=== PATIENT | male | born 1955 | race Caucasian/White ===

== ENCOUNTER 2019-01-19 07:22 | Outpatient (CLI) | payer OTHER | END 2019-01-19 19:52 | disposition home or self-care (01) | LOC: NUCLEAR 07:22 | DX: I20.9 Angina pectoris, unspecified (principal) | CPT/HCPCS: 78452; 93017; A9500 ==

== ENCOUNTER 2020-08-04 12:58 | Emergency (ER) | payer OTHER ==
[~2020-08-04] VITALS: Ht 177.8 cm; Wt 89.8 kg
[2020-08-04] MEDS ORDERED: DIOVAN160 M1 (13:14)
[2020-08-04] MEDS ORDERED: LIPITOR20 MG (13:14)
[2020-08-04] MEDS ORDERED: ALEVE220 M1 (13:15)
[2020-08-04] MEDS ORDERED: BAYER THERAPY325 MG (13:15)
== END 2020-08-04 22:17 | disposition home or self-care (01) ==
LOC: ER 12:58
DX: L03.115 Cellulitis of right lower limb (principal); I82.491 Acute embolism and thrombosis of other specified deep vein of right lower extremity; M79.604 Pain in right leg; Z03.818 Encounter for observation for suspected exposure to other biological agents ruled out

== ENCOUNTER 2020-08-05 07:31 | Outpatient (CLI) | payer OTHER ==
[~2020-08-05 07:31] MED LIST: ALEVE220 M1; BAYER THERAPY325 MG; DIOVAN160 M1; LIPITOR20 MG
== END 2020-08-05 07:56 | disposition home or self-care (01) ==
LOC: NUCLEAR 07:31
PROVIDERS: ATTEND General Practice
DX: M79.604 Pain in right leg (principal); I82.409 Acute embolism and thrombosis of unspecified deep veins of unspecified lower extremity

== ENCOUNTER → 2021-03-26 | Outpatient (CLI) | payer OTHER | END | disposition home or self-care (01) | LOC: NUCLEAR 07:00 | PROVIDERS: ATTEND Internal Medicine Cardiovascular Disease | DX: I25.119 Atherosclerotic heart disease of native coronary artery with unspecified angina pectoris (principal) | CPT/HCPCS: 78452; A9500 ==

== ENCOUNTER 2021-04-02 07:24 | Outpatient (CLI) | payer OTHER | END 2021-04-02 07:44 | disposition home or self-care (01) | LOC: TOM 07:24 | PROVIDERS: ATTEND Internal Medicine Cardiovascular Disease | DX: I71.2 Thoracic aortic aneurysm, without rupture (principal); R07.89 Other chest pain | CPT/HCPCS: 71275; Q9965 ==

== ENCOUNTER → 2021-06-29 07:26 | Outpatient (CLI) | payer OTHER | END | disposition home or self-care (01) | LOC: MRI 07:15 | DX: R22.1 Localized swelling, mass and lump, neck (principal); D17.0 Benign lipomatous neoplasm of skin and subcutaneous tissue of head, face and neck | CPT/HCPCS: 70543; A9575; 70542 ==

== ENCOUNTER 2022-04-20 07:21 | Outpatient (CLI) | payer OTHER | END 2022-04-20 07:27 | disposition home or self-care (01) | LOC: TOM 07:21 | PROVIDERS: ATTEND General Practice | DX: E04.2 Nontoxic multinodular goiter (principal); E07.9 Disorder of thyroid, unspecified; D11.0 Benign neoplasm of parotid gland; D32.9 Benign neoplasm of meninges, unspecified | CPT/HCPCS: 70491; Q9965 ==

== ENCOUNTER 2024-06-16 10:23 | Outpatient (CLI) | payer OTHER | END 2024-06-16 10:27 | disposition home or self-care (01) | LOC: RAD 10:23 | PROVIDERS: ATTEND Otolaryngology | DX: R05.3 Chronic cough (principal) ==